=== PATIENT | female | born 1980 | race African-American/Black ===

== ENCOUNTER 2017-08-31 21:07 | Emergency (ER) | payer OTHER ==
[~2017-08-31] VITALS: Ht 152.4 cm; Wt 76.0 kg
[2017-08-31 21:18] VITALS: BP 138/88
[2017-08-31] MEDS ORDERED: NAPROXEN500 MG PO (23:58)
[2017-08-31] MEDS ORDERED: FLEXERIL10 MG PO (23:58)
== END 2017-09-01 00:33 | disposition home or self-care (01) ==
LOC: EME 21:07
DX: S16.1XXA Strain of muscle, fascia and tendon at neck level, initial encounter (principal); V49.40XA Driver injured in collision with unspecified motor vehicles in traffic accident, initial encounter; Y92.410 Unspecified street and highway as the place of occurrence of the external cause
CPT/HCPCS: 72040; 99281; 99283